=== PATIENT | female | born 1960 | race Caucasian/White ===

== ENCOUNTER 2024-12-28 04:10 | Outpatient (CLI) | payer BC, SELFPAY ==
[2024-12-28 09:23] LABS: Abs Immature Grans 0.01 10^3/uL (0.0-0.06); HCT 38.8 % (36.0-46.0); HGB 12.8 g/dL (11.2-15.7); Immature Grans % 0.2 %; MCH 32.2 pg (27.0-33.0); MCHC 33.0 % (32.0-36.0); MCV 98 fL (80-95); MPV 9.5 fL (8.0-11.0); Platelet Count 197 10^3/uL (130-400); RBC 3.98 10^6/uL (3.93-5.22); RDW 13.0 % (11.7-14.6); RDW-SD 45.8 fL; WBC 5.14 10^3/uL (4.4-10.8)
[2024-12-28 10:03] LABS: ALT 33 U/L (14-59); AST 22 U/L (15-37); Albumin 4.4 g/dL (3.4-5.0); Alkaline Phosphatase 52 U/L (46-116); Anion Gap 9.4 mmol/L (3-11); BUN 24 mg/dL (7-18); Bilirubin, Total 0.5 mg/dL (0.2-1.0); CO2 29.6 mmol/L (21.0-32.0); Calcium 9.8 mg/dL (8.5-10.1); Chloride 100 mmol/L (98-107); Estimated GFR 71.39 (mL/min/1.73m2); Glucose 211 mg/dL (74-106); Magnesium 2.0 mg/dL (1.8-2.4); Potassium 4.0 mmol/L (3.5-5.1); Sodium 139 mmol/L (136-145); TSH 1.05 uIU/mL (0.36-3.74); Total Protein 7.6 g/dL (6.4-8.2)
== END 2024-12-28 04:11 | disposition home or self-care (01) ==
LOC: LBO 04:10
PROVIDERS: PCP Family Medicine; Visit Provider Internal Medicine Medical Oncology
DX: C34.11 Malignant neoplasm of upper lobe, right bronchus or lung (principal); C79.31 Secondary malignant neoplasm of brain; Z79.899 Other long term (current) drug therapy
CPT/HCPCS: 36415; 80053; 83735; 84439; 84443; 85025

== ENCOUNTER 2025-01-18 10:33 | Outpatient (CLI) | payer BC, SELFPAY ==
[2025-01-18 08:15] LABS: Abs Immature Grans 0.01 10^3/uL (0.0-0.06); HCT 36.3 % (36.0-46.0); HGB 12.2 g/dL (11.2-15.7); Immature Grans % 0.3 %; MCH 33.3 pg (27.0-33.0); MCHC 33.6 % (32.0-36.0); MCV 99 fL (80-95); MPV 8.8 fL (8.0-11.0); Platelet Count 207 10^3/uL (130-400); RBC 3.66 10^6/uL (3.93-5.22); RDW 14.3 % (11.7-14.6); RDW-SD 51.1 fL; WBC 3.62 10^3/uL (4.4-10.8)
[2025-01-18 08:54] LABS: ALT 28 U/L (14-59); AST 20 U/L (15-37); Albumin 4.3 g/dL (3.4-5.0); Alkaline Phosphatase 54 U/L (46-116); Anion Gap 5.3 mmol/L (3-11); BUN 16 mg/dL (7-18); Bilirubin, Total 0.4 mg/dL (0.2-1.0); CO2 30.7 mmol/L (21.0-32.0); Calcium 9.8 mg/dL (8.5-10.1); Chloride 102 mmol/L (98-107); Estimated GFR 71.39 (mL/min/1.73m2); Glucose 73 mg/dL (74-106); Magnesium 2.0 mg/dL (1.8-2.4); Potassium 4.3 mmol/L (3.5-5.1); Sodium 138 mmol/L (136-145); TSH 1.05 uIU/mL (0.36-3.74); Total Protein 7.7 g/dL (6.4-8.2)
== END 2025-01-18 10:34 | disposition home or self-care (01) ==
LOC: LBO 10:34
PROVIDERS: PCP Family Medicine; Visit Provider Internal Medicine Medical Oncology
DX: C34.11 Malignant neoplasm of upper lobe, right bronchus or lung (principal); C79.31 Secondary malignant neoplasm of brain; Z79.899 Other long term (current) drug therapy
CPT/HCPCS: 36415; 80053; 83735; 84439; 84443; 85025

== ENCOUNTER 2025-02-08 04:10 | Outpatient (CLI) | payer BC, SELFPAY ==
[2025-02-08 08:07] LABS: Abs Immature Grans 0.01 10^3/uL (0.0-0.06); HCT 33.6 % (36.0-46.0); HGB 11.1 g/dL (11.2-15.7); Immature Grans % 0.3 %; MCH 32.6 pg (27.0-33.0); MCHC 33.0 % (32.0-36.0); MCV 99 fL (80-95); MPV 8.8 fL (8.0-11.0); Platelet Count 151 10^3/uL (130-400); RBC 3.40 10^6/uL (3.93-5.22); RDW 14.9 % (11.7-14.6); RDW-SD 53.3 fL; WBC 3.10 10^3/uL (4.4-10.8)
[2025-02-08 08:28] LABS: ALT 26 U/L (14-59); AST 21 U/L (15-37); Albumin 4.0 g/dL (3.4-5.0); Alkaline Phosphatase 55 U/L (46-116); Anion Gap 6.8 mmol/L (3-11); BUN 20 mg/dL (7-18); Bilirubin, Total 0.3 mg/dL (0.2-1.0); CO2 30.2 mmol/L (21.0-32.0); Calcium 9.7 mg/dL (8.5-10.1); Chloride 102 mmol/L (98-107); Estimated GFR 56.11 (mL/min/1.73m2); Glucose 99 mg/dL (74-106); Magnesium 2.1 mg/dL (1.8-2.4); Potassium 4.4 mmol/L (3.5-5.1); Sodium 139 mmol/L (136-145); TSH 1.47 uIU/mL (0.36-3.74); Total Protein 7.6 g/dL (6.4-8.2)
== END 2025-02-08 04:11 | disposition home or self-care (01) ==
PROVIDERS: PCP Family Medicine; Visit Provider Internal Medicine Medical Oncology
DX: C34.11 Malignant neoplasm of upper lobe, right bronchus or lung (principal); C79.31 Secondary malignant neoplasm of brain; Z79.899 Other long term (current) drug therapy
CPT/HCPCS: 36415; 80053; 83735; 84439; 84443; 85025

== ENCOUNTER 2025-03-01 03:39 | Outpatient (CLI) | payer BC, SELFPAY ==
[2025-03-01 07:51] LABS: Abs Immature Grans 0.02 10^3/uL (0.0-0.06); HCT 31.8 % (36.0-46.0); HGB 10.3 g/dL (11.2-15.7); Immature Grans % 0.5 %; MCH 32.7 pg (27.0-33.0); MCHC 32.4 % (32.0-36.0); MCV 101 fL (80-95); MPV 8.7 fL (8.0-11.0); Platelet Count 212 10^3/uL (130-400); RBC 3.15 10^6/uL (3.93-5.22); RDW 16.1 % (11.7-14.6); RDW-SD 58.5 fL; WBC 3.75 10^3/uL (4.4-10.8)
[2025-03-01 08:14] LABS: ALT 27 U/L (14-59); AST 26 U/L (15-37); Albumin 3.8 g/dL (3.4-5.0); Alkaline Phosphatase 68 U/L (46-116); Anion Gap 8.8 mmol/L (3-11); BUN 25 mg/dL (7-18); Bilirubin, Total 0.4 mg/dL (0.2-1.0); CO2 28.2 mmol/L (21.0-32.0); Calcium 9.3 mg/dL (8.5-10.1); Chloride 101 mmol/L (98-107); Estimated GFR 62.91 (mL/min/1.73m2); Glucose 122 mg/dL (74-106); Magnesium 2.1 mg/dL (1.8-2.4); Potassium 4.8 mmol/L (3.5-5.1); Sodium 138 mmol/L (136-145); TSH 2.80 uIU/mL (0.36-3.74); Total Protein 7.3 g/dL (6.4-8.2)
== END 2025-03-01 03:40 | disposition home or self-care (01) ==
LOC: LBO 03:40
PROVIDERS: PCP Family Medicine; Visit Provider Internal Medicine Medical Oncology
DX: C34.11 Malignant neoplasm of upper lobe, right bronchus or lung (principal); C79.31 Secondary malignant neoplasm of brain; Z79.899 Other long term (current) drug therapy
CPT/HCPCS: 36415; 80053; 83735; 84439; 84443; 85025

== ENCOUNTER 2025-03-30 03:22 | Outpatient (CLI) | payer BC, SELFPAY ==
[2025-03-30 07:47] LABS: Abs Immature Grans 0.02 10^3/uL (0.0-0.06); HCT 34.3 % (36.0-46.0); HGB 11.2 g/dL (11.2-15.7); Immature Grans % 0.3 %; MCH 33.6 pg (27.0-33.0); MCHC 32.7 % (32.0-36.0); MCV 103 fL (80-95); MPV 9.5 fL (8.0-11.0); Platelet Count 173 10^3/uL (130-400); RBC 3.33 10^6/uL (3.93-5.22); RDW 13.9 % (11.7-14.6); RDW-SD 53.2 fL; WBC 6.62 10^3/uL (4.4-10.8)
[2025-03-30 08:07] LABS: Magnesium 2.0 mg/dL (1.6-2.6)
[2025-03-30 08:10] LABS: ALT 15 U/L (10-49); AST 27 U/L (<34); Albumin 4.6 g/dL (3.4-5.0); Alkaline Phosphatase 54 U/L (46-116); Anion Gap 7.8 mmol/L (3-11); BUN 14 mg/dL (9-23); Bilirubin, Total 0.60 mg/dL (0.2-1.2); CO2 29.2 mmol/L (20.0-31.0); Calcium 10.0 mg/dL (8.3-10.6); Chloride 101 mmol/L (98-107); Glucose 133 mg/dL (74-106); Potassium 4.9 mmol/L (3.5-5.1); Sodium 138 mmol/L (136-145); TSH 0.87 uIU/mL (0.55-4.78); Total Protein 7.4 g/dL (5.7-8.2)
== END 2025-03-30 03:23 | disposition home or self-care (01) ==
LOC: LBO 03:22
PROVIDERS: PCP Family Medicine; Visit Provider Internal Medicine Medical Oncology
DX: C34.11 Malignant neoplasm of upper lobe, right bronchus or lung (principal); C79.31 Secondary malignant neoplasm of brain; Z79.899 Other long term (current) drug therapy
CPT/HCPCS: 36415; 80053; 83735; 84439; 84443; 85025

== ENCOUNTER 2025-04-26 00:53 | Outpatient (CLI) | payer BC, SELFPAY ==
[2025-04-26 08:34] LABS: Abs Immature Grans 0.01 10^3/uL (0.0-0.06); HCT 37.9 % (36.0-46.0); HGB 12.5 g/dL (11.2-15.7); Immature Grans % 0.2 %; MCH 33.7 pg (27.0-33.0); MCHC 33.0 % (32.0-36.0); MCV 102 fL (80-95); MPV 9.6 fL (8.0-11.0); Platelet Count 168 10^3/uL (130-400); RBC 3.71 10^6/uL (3.93-5.22); RDW 12.3 % (11.7-14.6); RDW-SD 46.7 fL; WBC 5.59 10^3/uL (4.4-10.8)
[2025-04-26 08:53] LABS: Magnesium 1.9 mg/dL (1.6-2.6)
[2025-04-26 08:55] LABS: ALT 17 U/L (10-49); AST 30 U/L (<34); Albumin 4.8 g/dL (3.2-5.0); Alkaline Phosphatase 58 U/L (46-116); Anion Gap 8 mmol/L (3-11); BUN 26 mg/dL (9-23); Bilirubin, Total 0.6 mg/dL (0.2-1.2); CO2 29.0 mmol/L (20.0-31.0); Calcium 9.8 mg/dL (8.3-10.6); Chloride 101 mmol/L (98-107); Glucose 120 mg/dL (74-106); Potassium 4.7 mmol/L (3.5-5.1); Sodium 138 mmol/L (136-145); Total Protein 7.9 g/dL (5.7-8.2)
[2025-04-26 08:58] LABS: TSH 1.35 uIU/mL (0.55-4.78)
== END 2025-04-26 00:54 | disposition home or self-care (01) ==
LOC: LBO 00:54
PROVIDERS: PCP Family Medicine; Visit Provider Internal Medicine Medical Oncology
DX: C34.11 Malignant neoplasm of upper lobe, right bronchus or lung (principal); C79.31 Secondary malignant neoplasm of brain; Z79.899 Other long term (current) drug therapy
CPT/HCPCS: 36415; 80053; 83735; 84439; 84443; 85025